=== PATIENT | male | born 1930 | race Caucasian/White ===

== ENCOUNTER 2016-10-28 11:54 | Inpatient (IN) | payer MEDICARE, BC ==
[2016-10-28] MEDS ORDERED: Guaifenesin DM 100-10/5 ML UDCUP PO PRN (14:17)
[2016-10-28] MEDS ORDERED: Loperamide HCl 2 MG CAP PO PRN (14:17)
[2016-10-28] MEDS ORDERED: Milk Of Magnesia 30 ML UDCUP PO PRN (14:17)
[2016-10-28] MEDS ORDERED: Bisacodyl 10 MG SUPP PR PRN (14:17)
[2016-10-28] MEDS ORDERED: Ondansetron ODT 4 MG TAB PO PRN (14:17)
[2016-10-28] MEDS ORDERED: traZODone HCl 50 MG TAB PO PRN (14:17)
[2016-10-28] MEDS ORDERED: MENTHOL PO PRN (14:17)
[2016-10-28] MEDS ORDERED: Levalbuterol HCl 0.63 MG/3 ML NEB NEB PRN (14:17)
[2016-10-28] MEDS ORDERED: Ipratropium Bromide 2.5 ml Neb NEB PRN (14:17)
[2016-10-28] MEDS ORDERED: BENZOCAINE PO PRN (14:17)
[2016-10-28] MEDS ORDERED: cloNIDine HCl 0.1 MG TAB PO PRN (14:17)
[2016-10-28] MEDS ORDERED: [UNRECOGNIZED DRUG - OTHER] TOP PRN (14:17)
[2016-10-28] MEDS ORDERED: SODIUM CHLORIDE TOP PRN (14:17)
[2016-10-28] MEDS ORDERED: diphenhydrAMINE HCl 25 MG CAP PO PRN (14:17)
[2016-10-28] MEDS ORDERED: Acetaminophen 325 MG TAB PO PRN (14:17)
[2016-10-28] MEDS ORDERED: HYDROcodone/Acetaminophen 5/325 mg Tablet PO PRN (14:17)
[2016-10-28] MEDS ORDERED: Calcium Carbonate 500 MG ChewTAB PO PRN ×2 (14:17→14:56)
[2016-10-28] MEDS ORDERED: Insulin Regular 300 UNITS/3 ML VIAL SC SCH (14:30)
[2016-10-28] MEDS ORDERED: Cepastat Lozenges 1 LOZ PO PRN (15:16)
[2016-10-28] MEDS ORDERED: Sodium Chloride 0.65% Nasal 44 ML BOT EA NARE PRN (15:20)
[2016-10-28] MEDS ORDERED: Insulin Regular 300 UNITS/3 ML VIAL SC PRN ×2 (15:21)
[2016-10-28] MEDS ORDERED: Dextrose 5% in Water 1,000 ML IV PRN (15:21)
[2016-10-28] MEDS ORDERED: Dextrose 50% Abboject 50 ML SYRINGE IVP PRN (15:22)
[2016-10-28 15:58] VITALS: BMI 29.0
[2016-10-28] MEDS ORDERED: Meropenem 1 GM VIAL IVPB SCH (18:00)
[2016-10-28] MEDS: Meropenem 1 GM in Sodium Chloride 0.9% 100 ML IVPB SCH (18:32)
[2016-10-28] MEDS: Budesonide 0.5 MG/2 ML NEB NEB SCH (18:39)
[2016-10-28] MEDS: Megestrol Acetate 800 MG/20 ML UDCUP PO SCH (20:38)
[2016-10-28] MEDS: Apixaban 5 MG TAB PO SCH (20:39)
[2016-10-28] MEDS: Donepezil HCl 10 MG TAB PO SCH (20:39)
[2016-10-28] MEDS: Terazosin HCl 5 MG CAP PO SCH (20:39)
[2016-10-28] MEDS: Finasteride 5 MG TAB PO SCH (20:39)
[2016-10-28] MEDS: Nystatin Powder 15 GM BOT TOP SCH (20:39)
[2016-10-28] MEDS ORDERED: Non-Formulary Item 1 EACH (Megestrol Acetate [Megace] 400 MG) PO SCH (21:00)
[2016-10-28] MEDS ORDERED: Non-Formulary Item 1 EACH (Terazosin Hcl [Hytrin] 10 MG) PO SCH (21:00)
--- NOTE | 2016-10-28 23:06 | HP ---
DATE OF ADMISSION: 10/28/2016 HISTORY OF PRESENT ILLNESS: Mr. Servin is a very pleasant 86-year-old white male that was initiall y admitted to [facility] after being found and struck, unresponsive with temperature of 105 . He was brought to the emergency room and found to have an E. coli urinary tract infection, but al so he was found to have a liver abscess, which was aspirated and cultured. 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 He is to continue his meropenem until 11/22/2016. PAST MEDICAL HISTORY: Significant for multiple medical problems including, 1. Non-Hodgkin's lymphoma, which is in remission. 2. BPH. 3. GERD. 4. Diabetes. 5. Diabetes deficiency. 6. Degenerative joint disease followed by Dr. Lakhani in the past. 7. Dr. Cruz Garcia is following his BPH. The patient has also had significant problems with blood pressure, atrial fibrillation, coronary art ruslan disease, poor appetite, gastroesophageal reflux disease and constipation. FAMILY HISTORY: Reveals the patient's mother and father both in a traumatic accident when he w as 6 years old. Patient had 4 brothers, 3 of , one of aneurysm, one of some type of c ancer and the other one of unknown etiology. The patient has no sisters. He has 2 healthy chi ldren. PAST SURGICAL HISTORY: Reveals, 1. In 1937, patient had a tonsillectomy. 2. Twenty years ago, approximately 1993, the patient had some type of back surgery. 3. Patient had lumbar spine surgery in 2010. 4. The patient has had an appendectomy. 5. The patient had a cholecystectomy. ALLERGIES: The patient is thought to be allergic to PENICILLINS and STATINS and HMG-COA REDUCTASE I NHIBITORS. SOCIAL HISTORY: Reveals patient is . His is by side. The patient does not smoke, does not drink alcohol. Has occasional caffeine. He does not really exercise because his knees bother him. He has no toxic exposures. PRESENT MEDICATIONS: Revealed the patient is presently on the following multiple medications includ ing the followin. Amiodarone 400 mg daily. 2. Apixban 5 mg b.i.d. 3. Aspirin 81 mg daily. 4. Budesonide twice a day and nebulizer. 5. Cholecalciferol 1000 International Units twice a day. 6. Cyanocobalamin 1000 mg daily. 7. Diltiazem 240 mg extended release once a day. 8. Donepezil 10 mg at bedtime. 9. Finasteride 5 mg daily. 10. Folic acid 1 mg daily. 11. Bedtime mild and daytime mild sliding scale of regular insulin. 12. Megestrol 400 mg, which is 10 mL twice a day. 13. Meropenem 1000 mg every 8 hours with the last dose being on 11/22/2016. 14. Multivitamin daily. 15. Nystatin p.r.n. b.i.d. 16. Pantoprazole 40 mg with breakfast. 17. Polyethylene glycol 17 grams daily. 18. Florastor 250 mg twice a day. 19. Sodium chloride flush solution 10 mL every shift. 20. Terazosin 10 mg at bedtime. The patient does have p.r.n. medicines including Tylenol, Hensley 5 and Hensley 10, calcium carbonate, c lonidine, Benadryl, ipratropium, ondansetron 4 mg and trazodone 50 at bedtime. REVIEW OF SYSTEMS: Basically the patient states he has significant problems with fatigue and malais e, but no fever, chills, night sweats or dizziness at this time. Denies any skin problems. Denies any hearing or vision problems. He has had some problems with his chewing and he is on mechanical s oft diet with honey thickened liquids. The patient has had some shortness of breath in the past and dyspnea on exertion, but mainly because of his critical care myopathy. The patient denies any sign ificant chest pain, but he does have some dyspnea on exertion. Denies any palpitations. Denies any cough, cold, congestion, or wheezing. Denies any nausea, vomiting, indigestion. At this time, he has had problems with constipation. He has a Blanca catheter in place which basically has problems w ith leakage around it. We will most likely replace that. His urologist is Dr. Cruz Garcia. He pearce s have some arthralgias and pain, but mainly is in his knees. He has generalized weakness and numbn ess. He does have insomnia and has stress. He was diagnosed with a CVA by Dr. Magda Duvall. PHYSICAL EXAMINATION: GENERAL: This is a well-developed, well-nourished, very pleasant white male in no apparent distress at this time. He states he had a really good lunch today, it is the best he has eaten in several d ays. HEENT: Reveals normocephalic, nontraumatic cranium. The nose and throat are slightly dry. Pupils are equally round and reactive to light. Extraocular movements intact. NECK: Supple, without masses, nodes or bruits. LUNGS: Chest is clear to auscultation. No rales, rhonchi or wheezes are heard. No cough is noted. Breath sounds are slightly distant. HEART: Reveals a regular rate and rhythm without murmurs, gallops or rubs. He did have some atrial fib when he was in the hospital with RVR. ABDOMEN: Obese, soft, nontender, without organomegaly. Normal bowel sounds noted. GENITOURINARY: Deferred. EXTREMITIES: Reveal generalized weakness. NEUROLOGIC: The patient is able to walk only a several feet. He has no clubbing, cyanosis or edema . He is oriented to person, place, time, but not necessary situation. At times, he has more confus ion than others especially when he is tired. IMPRESSION: 1. Sepsis, most likely from his liver abscess. 2. Urinary tract infection. 3. Critical illness myopathy. 4. Hypertension. 5. Pressure ulcer of the coccygeal region. 6. Pressure ulcer on the heel. 7. Toxic metabolic encephalopathy much improved. 8. Type 2 diabetes. 9. Acute cerebrovascular accident. 10. Carotid stenosis on the right internal carotid needs further follow up with Dr. Moscoso. 11. Benign prostatic hypertrophy with Blanca catheter in place. 12. Chronic kidney disease stage 3. 13. [id number]-BM-[id number] elevation myocardial infarction. 14. Dementia. 15. Anemia. 16. Chronic back pain. 17. History of lymphoma. PLAN: 1. The patient will continue his meropenem q.8 hours until 11/22/2016. 2. We will continue to follow up with patient sugars with Accu-Cheks before meals and at bedtime. 3. Continue to follow the patient's blood pressure closely. 4. Continue to follow the patient's cardiac rate and rhythm and make sure he stays rate controlled. 5. He will have follow up with Dr. Moscoso for the right internal carotid stenosis in the future. 6. Most likely replace his Blanca catheter. 7. Get physical therapy and occupational therapy consult and evaluation and treatment. 8. Continue speech therapy. 9. Continue mechanical soft diet with honey thickened liquids. 10. Continue DVT and stress ulcer prophylaxis. 11. Continue decubitus precautions. 12. Continue Accu-Cheks before meals and at bedtime.
[2016-10-29] MEDS: Meropenem 1 GM in Sodium Chloride 0.9% 100 ML IVPB SCH ×3 (02:06→18:58)
[2016-10-29] MEDS: Budesonide 0.5 MG/2 ML NEB NEB SCH ×3 (05:14→18:00)
[2016-10-29 05:50] LABS: ALT (SGPT) 15 U/L (8-55); AST (SGOT) 20 U/L (5-34); Albumin 2.4 g/dL (3.4-4.8); Alkaline Phosphatase 76 U/L (40-150); Anion Gap 11 mmol/L (10-20); BUN (Urea Nitrogen) 9 mg/dL (8.4-25.7); Bilirubin, Total 0.4 mg/dL (0.2-1.2); Calc. Creatinine Clearance 74 mL/min (70-130); Calcium 8.3 mg/dL (7.8-10.44); Carbon Dioxide 24 mmol/L (23-31); Chloride 106 mmol/L (98-107); Estimated GFR-MDRD 86; Globulin 3.1 g/dL (2.4-3.5); Glucose 128 mg/dL (83-110); Potassium 4.3 mmol/L (3.5-5.1); Protein, Total 5.5 g/dL (5.8-8.1); Sodium 137 mmol/L (136-145)
[2016-10-29 05:56] LABS: #Basophils 0.1 thou/uL (0.0-0.2); #Eosinphils 0.1 thou/uL (0.0-0.7); #Monocytes 0.7 thou/uL (0.11-0.59); #Neutrophils 6.5 thou/uL (1.40-6.50); %Basophils 0.6 % (0.0-1.0); %Eosinophils 0.9 % (0.0-10.0); %Lymphocytes 21.2 % (21.0-51.0); %Monocytes 7.2 % (0.0-10.0); %Neutrophils 70.1 % (42.0-75.0); Hemoglobin 8.8 g/dL (14.0-18.0); Mean Corpuscular HGB CONC 32.8 g/dL (32.0-36.0); Mean Corpuscular Hemoglobin 28.7 pg (27.0-31.0); Mean Corpuscular Volume 87.4 fl (80.0-94.0); Mean Platelet Volume 10.6 fL (7.4-10.4); Platelet Count 130 thou/uL (130-400); RBC Distribution Width 13.3 % (11.5-14.5); Red Blood Cell (RBC) Count 3.07 mill/uL (4.70-6.10); White Blood Cell (WBC) Count 9.2 thou/uL (4.8-10.8)
[2016-10-29] MEDS ORDERED: Polyethylene Glycol 3350 17 GM Packet PO PRN (08:57)
[2016-10-29] MEDS ORDERED: Polyethylene Glycol 3350 17 GM Packet PO SCH (09:00)
[2016-10-29] MEDS ORDERED: DILTIAZEM HCL 240 MG PO SCH (09:00)
[2016-10-29] MEDS: Multivitamin W/ Minerals 1 TAB PO SCH (10:26)
[2016-10-29] MEDS: Apixaban 5 MG TAB PO SCH ×2 (10:26→21:06)
--- NOTE | 2016-10-29 10:26 | PRG ---
DATE OF SERVICE: 10/29/2016 DATE OF ADMISSION: 10/28/2016 SUBJECTIVE: Mr. Servin is a very pleasant 86-year-old white male admitted initially to [facility] after being found in his truck unresponsive with a temperature of 105. He was brought to [facility] emergency room and found to have E. coli urinary tract infection and liver abscess, which was asp irated and cultured. 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 Mr. Servin is transferred here to continue his meropenem and continu e physical therapy and occupational therapy. He will continue his meropenem until 11/22/2016. The patient states he had a good night last night. He is eating much better. He feels good about b eing here. He has no complaints. His states that he continues to have lots of leaking of his Blanca catheter around the Blanca. W e will irrigate that and replace it if need be with a coude tip catheter. He has no other complaint s. LABORATORY DATA: Laboratory today revealed white count 9200, hemoglobin 8.8, hematocrit 26.8, and p latelet count of 130,000. Sodium is 137, potassium 4.3, chloride 106, carbon dioxide 24 with a BUN of 9, creatinine 0.84 and h is point of care sugars this morning were 122. PHYSICAL EXAMINATION: VITAL SIGNS: Today reveal blood pressure 150/69, pulse 78 to 88, respirations 18 to 20, O2 sat 96% to 97%, T-max 96.6. GENERAL: This is a well-developed, well-nourished, slightly obese white male in no apparent distres s at this time. HEENT: Reveals normocephalic, nontraumatic cranium. Pupils are equally round and reactive. Extrao cular movements are intact. Nose and throat are slightly dry. NECK: Supple without masses, nodes or bruits. LUNGS: Chest is clear to auscultation. No rales, rhonchi or wheezes. No cough is heard. Breath s ounds are slightly distant. HEART: Reveals a regular rate and rhythm. The patient has had atrial fibrillation in the past when he was in the hospital with rapid ventricular response. ABDOMEN: Obese, soft, nontender, without organomegaly. No rebound or guarding is noted. Normal benny wel sounds are noted. No organomegaly is noted. GENITOURINARY: Reveals Blanca catheter in place, which is leaking quite a bit around. We will irrig ate, make sure can drain. If not, we will replace with a coude-tip catheter. EXTREMITIES: Reveal no clubbing, cyanosis or edema with generalized weakness. NEUROLOGIC: The patient is only able to walk several feet, but he seems to be much more awake and a lert and active today. Today is Monday, physical therapy and occupational therapy will not be her e so he is to get out of bed and sit in his chair quite a bit. IMPRESSION: 1. Sepsis from urinary tract infection and liver abscess. 2. Urinary tract infection. 3. Critical illness myopathy. 4. Hypertension. 5. Leaky Blanca catheter. 6. Pressure ulcer on the coccyx region. 7. Pressure ulcer on the heel. 8. Toxic metabolic encephalopathy, resolved. 9. Diabetes type 2, stable. 10. Acute cerebrovascular accident. 11. Carotid stenosis of the right internal carotid, needs further workup by Dr. Moscoso as outpatient . 12. Benign prostatic hypertrophy with Blanca catheter in place. 13. Chronic kidney disease stage 3. 14. Non-ST segment elevated myocardial infarction. 15. Dementia. 16. Anemia. 17. Chronic back pain. 18. History of lymphoma. PLAN: 1. The patient will continue his meropenem q.8 hours until 11/22/2016. 2. Continue following Accu-Cheks a.c. and at bedtime. 3. Follow the patient's blood pressure closely. 4. Follow the patient to make sure he stays in a normal sinus rhythm. 5. Follow up with Dr. Moscoso outpatient for right internal carotid stenosis evaluation. 6. Irrigate the Blanca, most likely replaced it with a coude-tip catheter if needed. 7. Continue physical therapy and occupational therapy. 8. Continue speech therapy. 9. Continue mechanical soft diet with honey thickened liquids. 10. Continue deep venous thrombosis and stress ulcer prophylaxis. 11. Continue decubitus precautions. 12. Continue Accu-Cheks before meals and after meals.
[2016-10-29] MEDS: Folic Acid 1 MG TAB PO SCH (10:27)
[2016-10-29] MEDS: Saccharomyces boulardii 250 MG CAP PO SCH (10:27)
[2016-10-29] MEDS: Cyanocobalamin (Vitamin B-12) 1,000 MCG TAB PO SCH (10:28)
[2016-10-29] MEDS: Nystatin Powder 15 GM BOT TOP SCH ×2 (10:29→21:09)
[2016-10-29] MEDS: Megestrol Acetate 800 MG/20 ML UDCUP PO SCH ×3 (10:30→21:16)
[2016-10-29] MEDS: HYDROcodone/Acetaminophen 10/325 mg Tablet PO PRN ×2 (13:39→21:11)
[2016-10-29 13:43] LABS: Bilirubin Negative (Negative); Blood, Urine Moderate (Negative); Clarity Clear (Clear); Glucose, Urine (Dipstick) Negative (Negative); Leukocyte Small (Negative); Nitrite Negative (Negative); Protein, Urine (Dipstick) 100 mg/dL (Neg-Trace); Specific Gravity, Urine 1.015 (1.005-1.030); Urobilinogen 0.2 mg/dL (0.2-1.0); pH, Urine 8.5 (5.0-9.0)
[2016-10-29 14:23] LABS: Bacteria/HPF Rare-Few HPF (None Seen); RBC/HPF 0-3 HPF (0-3); Squamous Epithelial 0-3 HPF (0-3)
[2016-10-29] MEDS: Terazosin HCl 5 MG CAP PO SCH (21:05)
[2016-10-29] MEDS: Finasteride 5 MG TAB PO SCH (21:06)
[2016-10-29] MEDS: Donepezil HCl 10 MG TAB PO SCH (21:06)
[2016-10-30] MEDS: Meropenem 1 GM in Sodium Chloride 0.9% 100 ML IVPB SCH ×3 (01:59→18:45)
[2016-10-30] MEDS: Budesonide 0.5 MG/2 ML NEB NEB SCH ×2 (06:01→18:45)
[2016-10-30] MEDS: Cyanocobalamin (Vitamin B-12) 1,000 MCG TAB PO SCH (09:00)
[2016-10-30] MEDS: Multivitamin W/ Minerals 1 TAB PO SCH ×2 (09:00→13:37)
[2016-10-30] MEDS: Folic Acid 1 MG TAB PO SCH ×2 (09:00→13:38)
[2016-10-30] MEDS: Saccharomyces boulardii 250 MG CAP PO SCH ×2 (09:00→13:38)
[2016-10-30] MEDS: Nystatin Powder 15 GM BOT TOP SCH ×2 (09:36→20:15)
[2016-10-30] MEDS: Apixaban 5 MG TAB PO SCH ×2 (09:36→20:15)
[2016-10-30] MEDS: Megestrol Acetate 800 MG/20 ML UDCUP PO SCH ×2 (09:36→20:13)
[2016-10-30] MEDS: HYDROcodone/Acetaminophen 10/325 mg Tablet PO PRN ×2 (09:50→13:39)
--- NOTE | 2016-10-30 12:19 | PRG ---
DATE OF SERVICE: 10/30/2016 SUBJECTIVE: Mr. Servin is a very pleasant 86-year-old white male who was found unresponsive in his truck with a temperature of 105. He was brought to the emergency room and found to have E. coli in his urine, but not in his blood. He also was found to have a liver abscess, which was aspirated an d cultured. He is eventually transferred out of the ICU and transferred to [facility] for physical therapy and occupational therapy where he did poorly. He was continued on his meropenem until 10/26. He is to continue physical therapy and occupational therapy. The patient states he has no complaints today except he would like his vitamins to move to lunch sade y from his other medications. He states when he takes so many pills, he just cannot eat. He has no other complaints. They did change his Blanca at 2200 last night, seems to be doing better with that. Point of care sugars reveal his sugars have between 120-145 for the last 4 sugars in the last 24 adele rs. PHYSICAL EXAMINATION: GENERAL: This is a well-developed, well-nourished, much more alert and active white male in no appa rent distress at this time. HEENT: Reveals normocephalic, nontraumatic cranium. The pupils are equally round and reactive. Ex traocular movements intact. Nose and throat are slightly dry. NECK: Supple, without masses, nodes or bruits. CHEST: Clear to auscultation. No rales, rhonchi or wheezes are noted. No cough is noted. HEART: Reveals a regular rate and rhythm without atrial fibrillation. The patient has had atrial f ibrillation in the past. He had rapid ventricular response back then. He is normal sinus today. ABDOMEN: Obese, soft, nontender, without organomegaly. No rebound or guarding is noted. Normal benny wel sounds are noted. : Reveals a new Blanca catheter in place which is not leaking. EXTREMITIES: Reveal no clubbing, cyanosis or edema, but just generalized weakness. NEUROLOGIC: The patient did not walk yesterday because there was no therapist around. IMPRESSION: 1. Sepsis from urinary tract infection and liver abscess. 2. Urinary tract infection, waiting on culture and sensitivity. 3. Critical illness myopathy. 4. Hypertension. 5. Leaking Blanca, which has been replaced. 6. Pressure ulcer on the coccyx, stage 2-3. 7. Pressure ulcer on the heel. 8. Toxic metabolic encephalopathy, resolved. 9. Diabetes type 2, stable. 10. Acute cerebrovascular accident. 11. Carotid stenosis of the right internal carotid. He has further evaluation by Dr. Msocoso as an o utpatient. 12. Benign prostatic hypertrophy. 13. Chronic kidney disease stage 3. 14. Non-ST segment elevated myocardial infarction. 15. Dementia. 16. Anemia. 17. Chronic back pain. 18. History of lymphoma. PLAN: 1. The patient will continue his meropenem q.8 hours until 11/22/2016. 2. We will await culture and sensitivities on his present urine. 3. Continue to follow Accu-Cheks a.c. and at bedtime. 4. Follow up the patient's blood pressure closely to make sure the patient's rhythm stays in normal sinus rhythm. 5. Follow up with Dr. Moscoso as an outpatient for internal carotid stenosis. 6. Continue physical therapy and occupational therapy again in the morning. 7. Continue speech therapy. 8. Mechanical soft diet with honey thickened liquids. 9. Continue deep venous thrombosis and stress ulcer prophylaxis. 10. Continue decubitus precautions. 11. Continue Accu-Cheks a.c. and at bedtime.
[2016-10-30] MEDS: Terazosin HCl 5 MG CAP PO SCH (20:14)
[2016-10-30] MEDS: Finasteride 5 MG TAB PO SCH (20:14)
[2016-10-30] MEDS: Donepezil HCl 10 MG TAB PO SCH (20:15)
[2016-10-31] MEDS: Meropenem 1 GM in Sodium Chloride 0.9% 100 ML IVPB SCH ×3 (02:30→18:09)
[2016-10-31] MEDS: Budesonide 0.5 MG/2 ML NEB NEB SCH ×2 (05:42→18:11)
[2016-10-31] MEDS ORDERED: Sodium Chloride 0.9% 10 ML ONE ×2 (08:25→18:06)
[2016-10-31] MEDS: Apixaban 5 MG TAB PO SCH ×2 (08:30→20:58)
[2016-10-31] MEDS: Cyanocobalamin (Vitamin B-12) 1,000 MCG TAB PO SCH (08:30)
[2016-10-31] MEDS: Nystatin Powder 15 GM BOT TOP SCH ×2 (08:32→20:59)
[2016-10-31] MEDS: Megestrol Acetate 800 MG/20 ML UDCUP PO SCH ×2 (08:32→20:59)
[2016-10-31] MEDS: HYDROcodone/Acetaminophen 10/325 mg Tablet PO PRN ×2 (08:34→18:11)
--- NOTE | 2016-10-31 10:42 | PRG ---
DATE OF SERVICE: 10/31/2016 HISTORY OF PRESENT ILLNESS: Mr. Servin is a very pleasant 86-year-old white male found sitting in his truck basically unresponsive with a temperature of 105. He was unresponsive and brought to the emergency room and found to have Escherichia coli in his urine, but not a bacteremia. He also was f ound to have a liver abscess which was aspirated and cultured. He was transferred from the ICU to [facility] for physical therapy and occupational therapy where he did poorly. He was unable to meet criteria there and so therefore he was transferred to [facility] for continued meropenem q.8 hours until 11/22/2016 and physical therapy and occupational therapy. He is doing much better here. He is eating better. He is taking his medications and he is slowly b ut surely getting somewhat stronger. OBJECTIVE: Vital signs this morning reveal blood pressure is 124/59, pulse 68-80, respirations 18-2 0, O2 sat 95-96%. T-max is 96.5. GENERAL: This is a well-developed, well-nourished, very pleasant white male in no apparent distress at this time. HEENT: Reveals normocephalic, nontraumatic cranium. Pupils are equally round and reactive. Extrao cular movements intact. Nose and throat are slightly dry. NECK: Supple, without masses, nodes or bruits. LUNGS: Chest clear to auscultation. No rales, rhonchi, wheezes or cough is heard. CARDIOVASCULAR: Reveals a regular rate and rhythm without murmurs, gallops or rubs. ABDOMEN: Obese, soft, nontender, without organomegaly. Normal bowel sounds are noted. : Deferred. Reveal a Blanca catheter which not leaking. EXTREMITIES: No clubbing, cyanosis or edema. NEUROLOGIC: The patient is having therapy right now and I did look at his coccyx area which shows m ultiple very small stage II type ulcers. IMPRESSION: 1. Sepsis from urinary tract infection and liver abscess. 2. Urinary tract infection, wait on culture and sensitivity. 3. Critical illness myopathy. 4. Hypertension. 5., Leaky Blanca which has been replaced with a 22, now not leaking. 6. Pressure ulcer on the coccyx, stage 2. 7. Pressure ulcer on the heel which is now blistered and clear. 8. Diabetes type 2. 9. Acute cerebrovascular accident. 10. Carotid stenosis of the right internal carotid artery, while waiting further evaluation by Dr. Moscoso. 11. Benign prostatic hypertrophy. 12. Chronic kidney disease stage 3. 13. Non-ST segment elevated myocardial infarction. 14. Dementia. 15. Anemia. 16. Chronic back pain. 17. History of lymphoma in remission. PLAN: 1. Continue meropenem q.8 h. until 11/22/2016. 2. Await sensitivities on present urine which is growing yeast. 3. Continue to follow Accu-Cheks a.c. and at bedtime. 4. Follow the patient's blood pressure closely. 5. Follow the patient's rhythm. 6. Follow up with Dr. Moscoso as outpatient for internal carotid stenosis. 7. Continue PT and OT. 8. Continue speech therapy. 9. Mechanical soft diet with honey thickened liquids. 10. Continue deep venous thrombosis and stress ulcer prophylaxis. 11. Continue decubitus precautions. 12. Continue Accu-Cheks a.c. and at bedtime.
[2016-10-31] MEDS: Folic Acid 1 MG TAB PO SCH (13:10)
[2016-10-31] MEDS: Saccharomyces boulardii 250 MG CAP PO SCH (13:10)
[2016-10-31] MEDS: Multivitamin W/ Minerals 1 TAB PO SCH (13:10)
[2016-10-31] MEDS: Donepezil HCl 10 MG TAB PO SCH (20:56)
[2016-10-31] MEDS: Finasteride 5 MG TAB PO SCH (20:58)
[2016-10-31] MEDS: Terazosin HCl 5 MG CAP PO SCH (21:00)
[2016-11-01] MEDS: Meropenem 1 GM in Sodium Chloride 0.9% 100 ML IVPB SCH ×2 (01:57→08:54)
[2016-11-01] MEDS: Budesonide 0.5 MG/2 ML NEB NEB SCH (05:35)
[2016-11-01 07:44] VITALS: BP 126/62; TEMP 96.2
[2016-11-01] MEDS ORDERED: Sodium Chloride 0.9% 10 ML ONE (08:20)
[2016-11-01] MEDS: Cyanocobalamin (Vitamin B-12) 1,000 MCG TAB PO SCH (08:53)
[2016-11-01] MEDS: Megestrol Acetate 800 MG/20 ML UDCUP PO SCH (08:53)
[2016-11-01] MEDS: Apixaban 5 MG TAB PO SCH (08:53)
[2016-11-01] MEDS: HYDROcodone/Acetaminophen 10/325 mg Tablet PO PRN (08:54)
[2016-11-01] MEDS: Nystatin Powder 15 GM BOT TOP SCH (08:54)
--- NOTE | 2016-11-01 19:06 | DIS ---
DATE OF ADMISSION: 10/28/2016 DATE OF DISCHARGE: 11/01/2016 Mr. Servin is a very pleasant 86-year-old white male that initially was found unresponsive in his t ruck, running a temperature of 105. He was brought to the emergency room at [facility], found to king ve E. coli in his urine, but his blood cultures were negative. He also found to have a large liver abscess, which was aspirated and cultured. He was transferred from the ICU to [facility] for physi nimco therapy, occupational therapy where he did very poorly because he really could not need and he h ad critical care myopathy. He was then transferred to [facility] for physical thera py, occupational therapy, and has actually done very well. The patient is able to eat because the f ood is much improved and he was getting stronger with physical therapy. His decided that she w ould like to have him at [place] so therefore he was approved and is being transferred today to [facility] for continued physical therapy and continued IV antibiotics with merop enem q.8 hours IV until 11/22/[address] Ram. He would also have continued physical therapy and occupational therapy, and speech therapy. SUBJECTIVE: The patient states he is doing well. He is eating better and he is ready to be moved. His hopes that he will be moved this morning so he can be early this afternoon for more therap y. OBJECTIVE: VITAL SIGNS: Vital signs this morning revealed blood pressure 126/62, pulse 78-83, respirations 20, O2 sat 96-98%, T-max was 96.9. LABORATORY DATA: No labs were done today except for sugars. His sugars monitored 118. Last night before bedtime is 150, before lunch 128, yesterday morning is 114. DISCHARGE MEDICATIONS: Medication reveals the patient on the followin. Tylenol 500 mg q.4 hours p.r.n. mild pain 1-3. 2. [place] 5 one tablet q.4 hours for moderate pain 4-6 and [place] 10 one tablet q.4 hours p.r.n. shima re pain 7-10. 3. Amiodarone 400 mg daily. 4. Eliquis 5 mg b.i.d. 5. Aspirin 81 mg daily. 6. Dulcolax p.r.n. 7. Budesonide and nebulizer treatments twice a day. 8. Tums 500 mg p.r.n. indigestion. 9. Vitamin D3 of 1000 units twice a day. 10. Catapres 0.1 mg p.r.n. systolic blood pressure greater than 180. 11. Vitamin B12 of 1000 mcg daily. 12. D5W to flush his saline port. 13. Diltiazem CD 240 mg daily. 14. Benadryl 25 mg p.r.n. itching. 15. Aricept 10 mg at bedtime. 16. Proscar 5 mg at bedtime. 17. Folic acid 1 mg daily. 18. Robitussin-DM p.r.n. 19. Mild sliding scale of Humulin regular insulin p.r.n. 20. Theragran M 1 tablet daily. 21. Xopenex 0.63 nebs q.6 hours p.r.n. wheezing. 22. Imodium p.r.n. diarrhea. 23. Milk of Magnesia p.r.n. constipation. 24. Megace 400 mg p.o. b.i.d. to increase his appetite. 25. Meropenem 1000 mg every 8 hours until, I think his last day is 11/22/2016. 26. Nystatin powder b.i.d. topically. 27. Protonix 40 mg each morning. 28. MiraLax 17 grams daily p.r.n. 29. Florastor 250 mg once a day. 30. Hytrin 10 mg at bedtime. 31. Trazodone 50 mg at night p.r.n. insomnia. PHYSICAL EXAMINATION: GENERAL: This is a well-developed, well-nourished, very pleasant, slightly obese white male in no a pparent distress at this time. HEENT: Reveals normocephalic, nontraumatic cranium. Pupils are equally round and reactive. Extrao cular movements are intact. Nose and throat are slightly dry. NECK: Supple, without masses, nodes or bruits. CHEST: Clear to auscultation. No rales, rhonchi, wheezes or cough was heard. HEART: Reveals a regular rate and rhythm without murmurs, gallops, or rubs. ABDOMEN: Obese, soft, nontender, without organomegaly. Normal bowel sounds are noted. No rebound or guarding is noted. GENITOURINARY: Deferred. EXTREMITIES: No clubbing, cyanosis, or edema. NEUROLOGIC: The patient has just generalized weakness, no focal weaknesses. SKIN: The patient has stage 2 coccygeal very small ulcers. IMPRESSION: 1. Sepsis from urinary tract infection. 2. Sepsis from liver abscess. 3. Critical illness myopathy. 4. Hypertension. 5. Urinary retention with a 22 Spanish coude tipped catheter. 6. Stage 2 pressure ulcers on the coccyx. 7. Pressure ulcer on the heel. 8. Diabetes type 2. 9. Acute cerebrovascular accident recently per Dr. De Guzman. 10. Carotid stenosis in the right internal carotid artery waiting further evaluation by Dr. Moscoso. 11. Patient continues his antibiotics. 12. Benign prostatic hypertrophy. 13. Chronic kidney disease stage 3. 14. Non-ST segment elevated myocardial infarction. 15. Dementia. 16. Anemia. 17. Chronic back pain. 18. History of lymphoma in remission. PLAN: 1. Patient will be transferred today to [place] where he will continue his previous antibiotics. 2. Continue meropenem q.8 hours until 11/22/2016. 3. Continue to follow Accu-Cheks a.c. and at bedtime. 4. Continue to follow the patient's blood pressure closely. 5. Follow the patient's rhythm actually he stays out of atrial fibrillation. 6. Follow up with Dr. Moscoso's outpatient for internal carotid stenosis. 7. Continue physical therapy and occupational therapy. 8. Continue speech therapy. 9. Continue mechanical soft diet with honey thickened liquids. 10. Continue deep venous thrombosis and stress ulcer prophylaxis. 11. Continue decubitus precaution. 12. Transfer when emesis is available.
--- NOTE | 2016-11-02 11:02 | PQF ---
PADILLA TAVAREZ C. HENRY MD [id number] CLINICAL DOCUMENTATION CLARIFICATION FORM: POST DISCHARGE Addendum to original discharge summary date: ____ Late entry note date: __ DATE: 11/02/2016 ATTN: DR. ROWELL The following CLINICAL INDICATORS - SIGNS / SYMPTOMS are present in the medical record: H&P: SEPSIS, UTI -E. COLI PATIENT HAS AHN CATH 10/31 PN: SEPSIS FROM UTI AND LIVER ABSCESS LEAKY AHN WHICH HAS BEEN REPLACED WITH A 22 DC SUMMARY: SEPSIS FROM UTI RISKS: H&P: LEAKY AHN CATH, MOST LIKELY REPLACE UTI AND LIVER ABSCESS TREATMENTS: MEROPENEM q. 8 hours Please provide a response below if a more specific term indicating a diagnosis and/or acuity level for this condition can be identified. Please exercise your independent, professional judgment in responding to the clarification form. Clinical indicators are provided at the top of this form for your review. For continuity of documentation, please document condition throughout progress notes and discharge summary. Thank you. Present on Admission:[ ] Yes[ ] No[ ] Unable to determine [ ] Sepsis (include causative agent if known) Due to: [ ] Device [ ] Implant [ ] Graft [ ] Infusion [ ] [ ] SIRS due to non-infectious process [ ] with organ dysfunction [ ] without organ dysfunction [ ] Severe sepsis with acute organ dysfunction of: (Examples: respiratory failure, encephalopathy, acute kidney failure, other) [ ] SIRS due to infection or infectious process [ ] with organ dysfunction [ ] without organ dysfunction [ ] Septic shock [ ] Sepsis related to a device (i.e. port, IV line, pacer / ICD leads, Ahn, etc.) [ ] Does not apply to this patient [ ] Unable to determine [ ] Other diagnosis Definitions [facility] clinic 2002: SIRS- clinical response to an insult, infection, or trauma that includes a systemic inflammation as well as increased or decreased temp, increased pulse, respiration and white count. SEPSIS- SIRS due to infection without organ dysfunction. SEVERE SEPSIS- SIRS due to an infection that progress to organ dysfunction. SEPTIC SHOCK- circulatory failure associated with severe sepsis, and represents a type of acute organ dysfunction. _ Physician/Provider Signature Date Time (This form is maintained as a part of the permanent medical record) 2014 [employer] All Rights Reserved Jenny Sampson, WILLIAM, [employer] [email or web address]
== END 2016-11-01 12:00 | DRG 871 ==
LOC: NAV ACUTE 11:54
PROVIDERS: ADMIT Family Medicine; ATTEND Family Medicine
DX: A41.51 Sepsis due to Escherichia coli [E. coli] (principal); K75.0 Abscess of liver; I21.4 Non-ST elevation (NSTEMI) myocardial infarction; G72.81 Critical illness myopathy; G93.41 Metabolic encephalopathy; L89.152 Pressure ulcer of sacral region, stage 2; E11.22 Type 2 diabetes mellitus with diabetic chronic kidney disease; C85.90 Non-Hodgkin lymphoma, unspecified, unspecified site; F03.90 Unspecified dementia, unspecified severity, without behavioral disturbance, psychotic disturbance, mood disturbance, and anxiety; N39.0 Urinary tract infection, site not specified; R65.20 Severe sepsis without septic shock; I12.9 Hypertensive chronic kidney disease with stage 1 through stage 4 chronic kidney disease, or unspecified chronic kidney disease; N18.3 Chronic kidney disease, stage 3 (moderate); D64.9 Anemia, unspecified; M54.9 Dorsalgia, unspecified; I65.21 Occlusion and stenosis of right carotid artery; M19.90 Unspecified osteoarthritis, unspecified site; K21.9 Gastro-esophageal reflux disease without esophagitis; Z88.0 Allergy status to penicillin; Z79.82 Long term (current) use of aspirin; N40.1 Benign prostatic hyperplasia with lower urinary tract symptoms; R33.8 Other retention of urine; Z86.73 Personal history of transient ischemic attack (TIA), and cerebral infarction without residual deficits; L89.609 Pressure ulcer of unspecified heel, unspecified stage; T83.038A Leakage of other urinary catheter, initial encounter; Y84.6 Urinary catheterization as the cause of abnormal reaction of the patient, or of later complication, without mention of misadventure at the time of the procedure
CPT/HCPCS: 36416; 80053; 81001; 85025; 87086; 94640; A4216; G8996-GN-CL; G8997-GN-CK; J2185; J7050; J7626